=== PATIENT | male | born 1965 | race Caucasian/White ===

== ENCOUNTER 2018-05-18 05:41 | Day surgery (SDC) | payer OTHER ==
[~2018-05-18 05:41] MED LIST: Buffered Lidocaine 1% SYRIN* 1 ML/SYRINGE INTRADERM ONE; Ondansetron TAB* 4 MG PO ONE
[2018-05-18] MEDS ORDERED: Lactated Ringers 1000 ML Bag* 1,000 ML IV SCH ×2 (06:00→09:00)
[2018-05-18] MEDS ORDERED: Dexamethasone TAB* 4 MG PO ONE (06:00)
[2018-05-18] MEDS ORDERED: Famotidine IV* 10 MG/ML 2 ML (20 mg) IV ONE (06:00)
[2018-05-18] MEDS ORDERED: Morphine VIAL* 4 MG/ML VIAL (1 ml vial) IV PRN (06:28)
[2018-05-18] MEDS ORDERED: DiMENhydriNATE IV* 50 MG/ML VIAL IV PUSH PRN (06:28)
[2018-05-18] MEDS ORDERED: oxyCODONE/Acetamin 5/325 MG* TAB PO PRN (06:28)
[2018-05-18] MEDS ORDERED: PROCHLORPERAZINE INJ 5 MG/ML 2 ML VIAL IV PRN (06:28)
[2018-05-18] MEDS ORDERED: Naloxone* 0.4 MG/ML 1 ML VIAL IV PRN (06:28)
[2018-05-18] MEDS ORDERED: fentaNYL* 50 MCG/ML 2 ML VIAL (100 MCG VIAL) IV PRN (06:28)
[2018-05-18] MEDS ORDERED: Dexamethasone TAB* 4 MG ONE (06:53)
[2018-05-18] MEDS ORDERED: Famotidine IV* 10 MG/ML 2 ML (20 mg) ONE (06:53)
[2018-05-18] MEDS ORDERED: Ondansetron ODT TAB* 4 MG ONE (06:53)
[2018-05-18] MEDS ORDERED: ceFAZolin 2 GM PREMIX in ORs 2 GM/50 ML BAG IVPB ONE (06:54)
[2018-05-18] MEDS ORDERED: Bacitracin IV* 50,000 UNITS INJ ONE (07:04)
[2018-05-18] MEDS ORDERED: Lidocain 1% EPI 1:100,000 * 30 ML MDV ONE (07:04)
[2018-05-18] MEDS ORDERED: Thrombin 5,000 UNITS* 1 APPLIC KIT - topical use - TOPICAL ONE (07:04)
[2018-05-18] MEDS ORDERED: Gelfoam Sponge SIZE 100* SPONGE ONE (07:07)
[2018-05-18] MEDS ORDERED: Atracurium* 10 MG/ML 10 ML VIAL ONE (07:08)
[2018-05-18] MEDS ORDERED: fentaNYL* 50 MCG/ML 2 ML VIAL (100 MCG VIAL) ONE (07:08)
[2018-05-18] MEDS ORDERED: Midazolam* 1 MG/ML 5 ML VIAL (5 MG) ONE (07:09)
[2018-05-18] MEDS ORDERED: Morphine VIAL* 10 MG/ML 1 ML VIAL ONE (07:48)
[2018-05-18] MEDS ORDERED: Glycopyrrolate IV* 0.2 MG/ML 1 ML VIAL ONE (08:39)
[2018-05-18] MEDS ORDERED: Propofol* 10 MG/ML 20 ML BTL ONE (08:39)
[2018-05-18] MEDS ORDERED: Neostigmine Methylsulfate* 1 MG/ML 10 ML VIAL (1 mg/ml) ONE (08:39)
[2018-05-18] MEDS ORDERED: Metoprolol Tartrate IV* 1 MG/ML 5 ML VIAL ONE (08:39)
[2018-05-18] MEDS ORDERED: Phenylephrine INJ* 10 MG/ML 1 ML VIAL (10 MG) ONE (08:40)
[2018-05-18] MEDS ORDERED: EPHEDrine (Pressors)* 50 MG/ML VIAL ONE (08:40)
[2018-05-18] MEDS ORDERED: Lidocaine 2% PF * 5 ML VIAL ONE (08:40)
[2018-05-18] MEDS ORDERED: Acetaminophen TAB* 325 MG PO PRN (08:51)
[2018-05-18] MEDS ORDERED: Magnesium Hydroxide LIQ* 30 ML UDC PO PRN (08:51)
[2018-05-18] MEDS ORDERED: Ondansetron INJ* 2 MG/ML VIAL IV PRN (08:51)
[2018-05-18] MEDS ORDERED: HYDROcodone/ACETAMIN 5-325 MG* 1 TAB ONE ×2 (09:27→09:28)
[2018-05-18] MEDS: HYDROcodone/ACETAMIN 5-325 MG* 1 TAB PO PRN ×3 (09:29→20:29)
[2018-05-18] MEDS: Gabapentin CAP(*) 300 MG PO SCH ×4 (10:13→20:30)
[2018-05-18] MEDS ORDERED: CMC:Simvastatin TAB(NF) 10 MG TAB PO SCH (21:00)
[2018-05-19] MEDS: HYDROcodone/ACETAMIN 5-325 MG* 1 TAB PO PRN ×2 (04:07→09:18)
--- NOTE | 2018-05-19 07:56 | PN ---
Progress Note - Progress Note Date of Service: 05/19/18 SOAP: Subjective: [S/p posterior cervical discectomy POD#1. LUE pain improved. Minimal incisional pain, controlled with PO medication. Denies headache, nausea Eating and drinking well Ambulating independently.] Objective: [ Vital Signs: Temp Pulse Resp BP Pulse Ox 98.5 F 62 16 91/49 97 05/19/18 03:46 05/19/18 03:46 05/19/18 06:09 05/19/18 03:46 05/19/18 04:01 General: Sitting up in bed, comfortable Neuro: Motor and sensory inact Incision: Intact and without swelling, erythema. ] Assessment: [Satisfactory post-op] Plan: [1. Discharge home today 2. Discharge instructions discussed]
[2018-05-19 07:58] VITALS: BP 96/59
[2018-05-19] MEDS: Gabapentin CAP(*) 300 MG PO SCH (09:46)
--- NOTE | 2018-06-02 10:05 | OP ---
DATE OF OPERATION: 05/18/18 [facility] DATE OF : 67 PRIMARY SURGEON: Dr. Siva Lopez. GEOMETRY TUTOR: WILLIAM Gunderson. ANESTHESIA: General. PRE-OP DIAGNOSIS: Herniated nucleus pulposus, C6-7 on the left. POST-OP DIAGNOSIS: Herniated nucleus pulposus, C6-7 on the left. OPERATIVE PROCEDURE: Posterior cervical diskectomy C6-7 on the left with microdissection. DESCRIPTION OF PROCEDURE: After satisfactory general anesthesia was obtained, the patient was placed on the operating table in the prone position with the chest supported on chest rolls and the neck maintained with slight neck flexion utilized Freeman headrest. The posterior cervical area was then clipped, prepped and draped in sterile manner for posterior cervical exposure and the skin incision outlined from C6 to C7. This incision was infiltrated with 1% Xylocaine with epinephrine, after which it was turned down sharply to the level of the cervical fascia. The fascia was divided along the spinous processes from C5 to C7 and the paraspinal musculature stripped away from posterior element using the periosteal elevator and monopolar cautery. An intraoperative x-ray was obtained verifying proper interspace localization after which a partial hemilaminectomy was carried out by moving the inferior aspect of the C5 lamina and superior aspect of the C7 lamina as well as the medial aspect of the facet complex with the combination of the Midas Jp drill and Kerrison rongeurs. Ligamentum flavum was then removed with the Kerrison as well. At this point of the procedure, the operating microscope was brought into the field and the remainder of the procedure was done under microscopic visualization. Utilizing microdissection, epidural venous structures were coagulated and divided. Projecting into the axillary region of the nerve root, exposure was a subscapular herniated disk. An opening was made in the posterior longitudinal ligament and multiple fragments of disk were removed from beneath the nerve root. There were also fragments extending out into the neuroforamen. After multiple fragments had been removed, it was felt that a satisfactory decompression had been achieved. The wound was then thoroughly irrigated after which a piece of Gelfoam was placed over the laminectomy defect. The fascia was then reapproximated with 0 Vicryl suture. The subcutaneous tissue was closed with 3-0 Vicryl suture and the skin closed with skin clips. The estimated blood loss was less than 50 cc and the final sponge, padding, and needle counts were correct. The patient was taken to the recovery room, extubated, and in stable condition. [id number]/[facility] #: [id number] [facility]ristian
== END 2018-05-19 09:33 | disposition home or self-care (01) ==
LOC: SSU 05:41 → OR 05:41 → SSU 08:51 → OR 05-19 09:33
PROVIDERS: ATTEND Neurological Surgery
DX: M50.123 Cervical disc disorder at C6-C7 level with radiculopathy (principal); E78.5 Hyperlipidemia, unspecified
CPT/HCPCS: 72020; A9270-GY; J0690; J2250; J2270; J2704; J2710; J3010; J3490; J8540